=== PATIENT | female | born 1970 | race Caucasian/White ===

== ENCOUNTER → 2016-09-04 | Outpatient (CLI) | payer MEDICAID ==
[~2016-09-04] VITALS: Ht 152.4 cm; Wt 90.9 kg
[~2016-09-04] MED LIST: CITALOPRAM40 MG PO; GABAPENTIN TAB600 MG PO; LEVOTHYROXIN0.137 MG PO; LORAZEPAM1 M1 PO; OMEPRAZOLE40 MG PO; PRAVASTATIN SOD40 MG PO; XARELTO20 MG PO
[2016-09-04 19:20] VITALS: BP 109/70
== END ==
LOC: AMSURD 17:09
DX: R06.00 Dyspnea, unspecified (principal); R21 Rash and other nonspecific skin eruption
CPT/HCPCS: J1200; J2930

== ENCOUNTER → 2016-09-10 | Outpatient (CLI) | payer MEDICAID ==
[2016-09-04 19:20] VITALS: BP 109/70
== END ==
LOC: RAD 12:41
DX: R06.00 Dyspnea, unspecified (principal)
CPT/HCPCS: Q9967

== ENCOUNTER → 2016-09-11 | Outpatient (CLI) | payer MEDICAID ==
[2016-09-04 19:20] VITALS: BP 109/70
== END ==
LOC: LAB 11:09
DX: R06.00 Dyspnea, unspecified (principal)

== ENCOUNTER → 2017-02-06 | Outpatient (CLI) | payer MEDICAID ==
[2016-09-04 19:20] VITALS: BP 109/70
== END ==
LOC: MAMMO 10:04
DX: Z12.31 Encounter for screening mammogram for malignant neoplasm of breast (principal)
CPT/HCPCS: G0202

== ENCOUNTER → 2017-06-07 | Outpatient (CLI) | payer MEDICAID ==
[2016-09-04 19:20] VITALS: BP 109/70
== END ==
LOC: RAD 08:34
DX: R22.0 Localized swelling, mass and lump, head (principal)
CPT/HCPCS: Q9967

== ENCOUNTER → 2017-10-18 | Outpatient (CLI) | payer MEDICAID ==
[2016-09-04 19:20] VITALS: BP 109/70
== END ==
LOC: RAD 09:09
DX: M79.605 Pain in left leg (principal); R07.9 Chest pain, unspecified; M25.511 Pain in right shoulder; R23.1 Pallor; Z86.718 Personal history of other venous thrombosis and embolism; Z86.2 Personal history of diseases of the blood and blood-forming organs and certain disorders involving the immune mechanism; Z86.711 Personal history of pulmonary embolism
CPT/HCPCS: Q9967

== ENCOUNTER 2018-04-09 00:02 | Inpatient (IN) | payer MEDICAID ==
[~2018-04-09] VITALS: Ht 157.5 cm; Wt 102.9 kg
[2018-04-09 00:41] LABS: HEMATOCRIT 39.8 % (37.0-47.0); HEMOGLOBIN 13.6 g/dL (12.5-16.0); MEAN CELL VOLUME 93 fl (78-100); MEAN CORPUSCULAR HEMOGLOBIN 32 pg (27-31); MEAN CORPUSCULAR HGB CONC 34 g/dL (33-37); MEAN PLATELET VOLUME 9.9 fl (7.4-10.4); PLATELET COUNT 279 K/mm3 (130-400); RED BLOOD COUNT 4.27 M/mm3 (4.10-5.30); RED CELL DISTRIBUTION WIDTH 13.1 % (11.5-14.5); WHITE BLOOD COUNT 9.1 K/mm3 (4.8-10.8)
[2018-04-09 00:50] LABS: ALBUMIN 4.3 g/dL (3.5-5.0); CALCIUM 8.7 mg/dL (8.4-10.2); POTASSIUM 4.1 mmol/L (3.6-5.0); TOTAL PROTEIN 7.9 g/dL (6.3-8.2)
[2018-04-09 01:11] LABS: LYMPHOCYTE 13 % (20-51); MONOCYTE 12 % (3-10); NEUTROPHILS 71 % (42-75)
[2018-04-09] MEDS ORDERED: IPRATROPIUM BROM3 M1 IH (01:32)
[2018-04-09] MEDS ORDERED: CELEXA 20MG20 MG/TA1 PO (01:33)
[2018-04-09] MEDS ORDERED: ASPIRIN E.C. 8181 MG (01:33)
[2018-04-09] MEDS ORDERED: FOSAMAX 70MG TA70 MG PO (01:33)
[2018-04-09] MEDS ORDERED: CALCIUM +D & M1 EACH PO (01:33)
[2018-04-09] MEDS ORDERED: NORCO 325 MG-7.1 TA1 PO (01:34)
[2018-04-09] MEDS ORDERED: VITAMIN B12 PO (01:34)
[2018-04-09] MEDS ORDERED: NEURONTIN800 M1 PO (01:34)
[2018-04-09] MEDS ORDERED: ATIVAN1 M1 PO (01:35)
[2018-04-09] MEDS ORDERED: SYNTHROID0.125 MG PO (01:35)
[2018-04-09] MEDS ORDERED: PRILOSEC 20MG20 MG PO (01:35)
[2018-04-09] MEDS ORDERED: RT SPIRIVA INH18 MCG IH (01:36)
[2018-04-09] MEDS ORDERED: PROAIR HFA0.09 MG/AC IH (01:36)
[2018-04-09] MEDS ORDERED: PRAVACHOL 40MG40 MG PO (01:36)
[2018-04-09] MEDS ORDERED: XARELTO20 MG PO (01:37)
[2018-04-09] MEDS ORDERED: SYMBICORT1 AE3 IH (01:37)
[2018-04-09] MEDS ORDERED: LAMICTAL 100MG100 MG PO (01:38)
[2018-04-09 01:42] VITALS: BP 120/72
[2018-04-09 03:52] LABS: PH-URINE 5.5 (5.0 - 8.0); URINE APPEARANCE HAZY; URINE BILIRUBIN NEGATIVE (NEGATIVE); URINE BLOOD TRACE (NEGATIVE); URINE COLOR YELLOW; URINE GLUCOSE NEGATIVE (NEGATIVE); URINE KETONE NEGATIVE (NEGATIVE); URINE LEUKOCYTE ESTERASE TRACE (NEGATIVE); URINE NITRATE NEGATIVE (NEGATIVE); URINE PROTEIN(semi-quant) TRACE mg/dL (NEGATIVE); URINE UROBILINOGEN 1 mg/dL (NORMAL)
[2018-04-09 03:53] LABS: URINE MUCUS PRESENT (NOT PRESENT); URINE WBC 0-1 /hpf (0-3)
[2018-04-09 06:23] VITALS: BP 109/75
[2018-04-09 08:00] LABS: ALBUMIN 4.1 g/dL (3.5-5.0); CALCIUM 8.5 mg/dL (8.4-10.2); POTASSIUM 4.4 mmol/L (3.6-5.0); TOTAL BILIRUBIN 0.5 mg/dL (0.2-1.3); TOTAL PROTEIN 7.4 g/dL (6.3-8.2)
[2018-04-09 11:19] VITALS: BP 105/68
[2018-04-09 15:01] VITALS: BP 104/65
[2018-04-09 19:22] VITALS: BP 111/78
[2018-04-09 23:22] VITALS: BP 111/73
[2018-04-10 02:58] VITALS: BP 123/81
[2018-04-10 05:56] LABS: HEMATOCRIT 34.9 % (37.0-47.0); HEMOGLOBIN 11.2 g/dL (12.5-16.0); MEAN CELL VOLUME 97 fl (78-100); MEAN CORPUSCULAR HEMOGLOBIN 31 pg (27-31); MEAN CORPUSCULAR HGB CONC 32 g/dL (33-37); MEAN PLATELET VOLUME 10.2 fl (7.4-10.4); PLATELET COUNT 257 K/mm3 (130-400); RED CELL DISTRIBUTION WIDTH 13.1 % (11.5-14.5); WHITE BLOOD COUNT 7.9 K/mm3 (4.8-10.8)
[2018-04-10 05:58] LABS: CALCIUM 8.3 mg/dL (8.4-10.2); POTASSIUM 4.4 mmol/L (3.6-5.0)
[2018-04-10 06:24] LABS: LYMPHOCYTE 9 % (20-51); MONOCYTE 4 % (3-10); NEUTROPHILS 87 % (42-75); POLYCHROMASIA 1+
[2018-04-10 06:39] VITALS: BP 125/78
[2018-04-10] MEDS ORDERED: AZITHROMYCIN500 M2 PO (10:19)
[2018-04-10] MEDS ORDERED: PREDNISONE20 MG PO (10:23)
[2018-04-10] MEDS ORDERED: IPRATROPIUM BROM3 M1 IH (10:24)
[2018-04-10] MEDS ORDERED: ALBUTEROL2.5 MG/3 M IH (10:25)
[2018-04-10 11:00] VITALS: BP 109/62
== END 2018-04-10 11:36 | disposition home or self-care (01) | DRG 194 ==
LOC: ED 00:02 → MED/SURG 01:42
PROVIDERS: Physician Assistant; ADMIT Nurse Practitioner
DX: J14 Pneumonia due to Hemophilus influenzae (principal); J44.0 Chronic obstructive pulmonary disease with (acute) lower respiratory infection; J44.1 Chronic obstructive pulmonary disease with (acute) exacerbation; Z89.612 Acquired absence of left leg above knee; Z86.718 Personal history of other venous thrombosis and embolism; Z79.01 Long term (current) use of anticoagulants; Z87.891 Personal history of nicotine dependence; Z86.711 Personal history of pulmonary embolism
CPT/HCPCS: J0456; J0696; J2405; J2930; J7030; J7050; Q9967

== ENCOUNTER → 2018-07-22 | Outpatient (CLI) | payer MEDICAID ==
[~2018-07-22] MED LIST changes: +ALBUTEROL2.5 MG/3 M IH; +ASPIRIN E.C. 8181 MG; +ATIVAN1 M1 PO; +AZITHROMYCIN500 M2 PO; +CALCIUM +D & M1 EACH PO; +CELEXA 20MG20 MG/TA1 PO; +FOSAMAX 70MG TA70 MG PO; +IPRATROPIUM BROM3 M1 IH; +LAMICTAL 100MG100 MG PO; +NEURONTIN800 M1 PO; +NORCO 325 MG-7.1 TA1 PO; +PRAVACHOL 40MG40 MG PO; +PREDNISONE20 MG PO; +PRILOSEC 20MG20 MG PO; +PROAIR HFA0.09 MG/AC IH; +RT SPIRIVA INH18 MCG IH; +SYMBICORT1 AE3 IH; +SYNTHROID0.125 MG PO; +VITAMIN B12 PO
== END ==
LOC: MAMMO 09:58
DX: Z12.31 Encounter for screening mammogram for malignant neoplasm of breast (principal)

== ENCOUNTER → 2019-02-24 | Outpatient (CLI) | payer MEDICAID | LOC: RAD 11:12 | DX: R40.20 Unspecified coma (principal); W19.XXXA Unspecified fall, initial encounter ==

== ENCOUNTER → 2019-08-26 | Outpatient (CLI) | payer MEDICAID | LOC: MAMMO 06-24 13:00 | DX: Z13.820 Encounter for screening for osteoporosis (principal); M81.0 Age-related osteoporosis without current pathological fracture; M85.80 Other specified disorders of bone density and structure, unspecified site; Z89.512 Acquired absence of left leg below knee ==

== ENCOUNTER 2019-10-02 14:00 | Outpatient (RCR) | payer MEDICAID | END 2019-10-02 14:30 | disposition still patient (30) | LOC: PT 14:00 | DX: M25.511 Pain in right shoulder (principal) ==

== ENCOUNTER → 2019-10-06 | Outpatient (CLI) | payer MEDICAID | LOC: RAD 07:00 | DX: H93.13 Tinnitus, bilateral (principal); H90.3 Sensorineural hearing loss, bilateral | CPT/HCPCS: A9585 ==